=== PATIENT | female | born 1935 | race Two or more races ===

== ENCOUNTER 2017-07-19 10:49 | Emergency (ER) | payer OTHER ==
[~2017-07-19] VITALS: Ht 149.9 cm; Wt 40.8 kg
[2017-07-19 11:14] VITALS: BP 132/72
[2017-07-19] MEDS ORDERED: VOLTAREN100 G1 TP (11:19)
[2017-07-19] MEDS ORDERED: CALCIUM + D3 E1 EACH PO (11:19)
[2017-07-19] MEDS ORDERED: TRAZODONE HCL150 MG ORAL (11:19)
[2017-07-19] MEDS ORDERED: LEVOTHYROXINE75 MCG ORAL (11:19)
[2017-07-19] MEDS ORDERED: MAPAP500 M2 PO (11:19)
[2017-07-19] MEDS ORDERED: FOSAMAX70 MG ORAL (11:19)
[2017-07-19] MEDS ORDERED: ONDANSETRON ODT8 MG ORAL (11:25)
[2017-07-19] MEDS ORDERED: MELOXICAM7.5 MG PO (11:25)
[2017-07-19] MEDS ORDERED: ROBAFEN-DM SYR118 ML PO (11:25)
--- NOTE | 2017-07-19 11:46 | Diagnostic Imaging Report ---
Indications: Fall, change in mental status Technique: Spiral acquisitions obtained through the brain. Angled axial and coronal 5 x 5 mm slices were reconstructed. Total dose length product 1273.93 mGycm. CTDI vol(s) 70.38 mGy. Dose reduction achieved using automated exposure control Comparison: None. Findings: The calvarium is intact. No evidence of acute intracranial hemorrhage or edema, mass effect, or midline shift. Normal cornejo-white differentiation. There is age-related enlargement of the ventricles and extra-axial CSF spaces and periventricular deep white matter low-attenuation consistent with chronic ischemic change. There is minimal sphenoid sinus disease. 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 A few scattered parenchymal calcifications are also demonstrated. 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 There may be some parenchymal calcifications as well. Other chronic and age-related changes, as described The CT scanner at [facility] is accredited by the [employer] and the scans are performed using protocols designed to limit radiation exposure to as low as reasonably achievable to attain images of sufficient resolution adequate for diagnostic evaluation.
[2017-07-19 12:05] LABS: HEMATOCRIT 43.4 % (37.0-47.0); HEMOGLOBIN 14.2 G/DL (12.0-16.0); LYMPHOCYTES % (AUTO) 23.9 % (20.0-45.0); MEAN CORPUSCULAR VOLUME 89 FL (80-99); MONOCYTES % (AUTO) 10.9 % (1.0-10.0); NEUTROPHILS % (AUTO) 63.2 % (45.0-75.0); PLATELET COUNT 280 K/UL (150-450); RED BLOOD COUNT 4.87 M/UL (4.20-5.40); RED CELL DISTRIBUTION WIDTH 11.1 % (11.6-14.8); WHITE BLOOD COUNT 9.1 K/UL (4.8-10.8)
--- NOTE | 2017-07-19 12:08 | Diagnostic Imaging Report ---
Indication: Shortness of breath Technique: One view of the chest Comparison: none Findings: Hypoventilatory exam with bilateral basilar atelectasis. Normal heart size. Tortuous calcite aorta. Upper mediastinum is unremarkable. Calcification or metallic density projects over the lower midline. Impression: No acute process
[2017-07-19 12:11] LABS: INR 1.1 (0.9-1.1)
[2017-07-19 12:17] LABS: ANION GAP 8 mmol/L (5-15); BLOOD UREA NITROGEN 31 mg/dL (7-18); CALCIUM 10.2 MG/DL (8.5-10.1); CARBON DIOXIDE 29 MMOL/L (21-32); CHLORIDE 98 MMOL/L (98-107); CREATININE 1.7 MG/DL (0.55-1.30); POTASSIUM 4.3 MMOL/L (3.5-5.1); SODIUM 135 MMOL/L (136-145)
[2017-07-19 12:21] LABS: APPEARANCE,URINE CLEAR; BILIRUBIN, URINE NEGATIVE (NEGATIVE); COLOR,URINE PALE YELLOW; GLUCOSE, URINE (UA) NEGATIVE (NEGATIVE); KETONES,URINE NEGATIVE (NEGATIVE); LEUKOCYTE ESTERASE ,URINE NEGATIVE (NEGATIVE); NITRITE,URINE NEGATIVE (NEGATIVE); PH,URINE 5 (4.5-8.0); PROTEIN,URINE NEGATIVE (NEGATIVE); UROBILINOGEN,URINE NORMAL MG/DL (0.0-1.0)
[2017-07-19 12:22] LABS: ALANINE AMINOTRANSFERASE 29 U/L (12-78); ALBUMIN 3.6 G/DL (3.4-5.0); ALBUMIN/GLOBULIN RATIO 0.9 (1.0-2.7); ALKALINE PHOSPHATASE 42 U/L (46-116); ASPARTATE AMINO TRANSFERASE 34 U/L (15-37); BILIRUBIN,TOTAL 0.5 MG/DL (0.2-1.0); CREATINE KINASE 347 U/L (26-308)
--- NOTE | 2017-07-19 14:31 | Emergency Room Report ---
History of Present Illness General Chief Complaint: Multiple Trauma/Fall Source: Patient Present Illness HPI This patient presents from assisted living facility. There was concern that she had fallen in the bathroom this morning. The fall was not witnessed. Per report, staff found the patient on the floor in the bathroom. There is was no obvious trauma. The patient herself has no complaints. There is no other history available. Allergies: Coded Allergies: No Known Allergies (Unverified , 07/19/17) Patient History Past Medical History: see triage record, dementia, renal disease, other - Gait instability Social History: Denies: smoking, alcohol use, drug use Reviewed Nursing Documentation: PMH: Agreed; PSxH: Agreed Nursing Documentation-PMH Past Medical History: No History, Except For Review of Systems All Other Systems: negative except mentioned in HPI Physical Exam Vital Signs Date Time Temp Pulse Resp B/P (MAP) Pulse Ox O2 Delivery O2 Flow Rate FiO2 07/19/17 10:56 97.5 84 16 132/72 97 Room Air 97.5 Sp02 EP Interpretation: reviewed, normal General Appearance: no apparent distress, alert, GCS 15, non-toxic Head: normocephalic, atraumatic Eyes: bilateral eye normal inspection, bilateral eye PERRL ENT: hearing grossly normal, normal pharynx, no angioedema, normal voice Neck: full range of motion, supple/symm/no masses Respiratory: chest non-tender, lungs clear, normal breath sounds, speaking full sentences Cardiovascular #1: regular rate, rhythm, no edema Gastrointestinal: normal bowel sounds, non tender, soft, non-distended, no guarding, no rebound Rectal: deferred Musculoskeletal: back normal, gait/station normal, normal range of motion, non- tender Neurologic: alert, oriented x3, responsive, motor strength/tone normal, sensory intact, speech normal Psychiatric: judgement/insight normal, memory normal, mood/affect normal, no suicidal/homicidal ideation Skin: normal color, no rash, warm/dry, well hydrated Medical Decision Making Diagnostic Impression: Primary Impression: Fall Additional Impression: Renal insufficiency, mild ER Course This elderly female presents for evaluation after a fall in the bathroom. She is a very well-appearing without any evidence of long bone or bony fracture of any sort. My physical exam is benign. There is no evidence of head trauma, however, given the patient's age I did obtain a CT of the head. The patient's laboratory workup is at her baseline. She does have renal insufficiency but this is chronic for her. The patient's family is bedside. At this time, I did not identify an emergency medical condition or significant injury from her fall. She is returned to the assisted living facility. Laboratory Tests Test 07/19/17 11:30 07/19/17 12:10 White Blood Count 9.1 K/UL (4.8-10.8) Red Blood Count 4.87 M/UL (4.20-5.40) Hemoglobin 14.2 G/DL (12.0-16.0) Hematocrit 43.4 % (37.0-47.0) Mean Corpuscular Volume 89 FL (80-99) Mean Corpuscular Hemoglobin 29.1 PG (27.0-31.0) Mean Corpuscular Hemoglobin Concent 32.6 G/DL (32.0-36.0) Red Cell Distribution Width 11.1 % (11.6-14.8) L Platelet Count 280 K/UL (150-450) Mean Platelet Volume 6.7 FL (6.5-10.1) Neutrophils (%) (Auto) 63.2 % (45.0-75.0) Lymphocytes (%) (Auto) 23.9 % (20.0-45.0) Monocytes (%) (Auto) 10.9 % (1.0-10.0) H Eosinophils (%) (Auto) 1.0 % (0.0-3.0) Basophils (%) (Auto) 1.0 % (0.0-2.0) Prothrombin Time 12.0 SEC (9.30-11.50) H Prothrombin Time INR 1.1 (0.9-1.1) PTT 30 SEC (23-33) Sodium Level 135 MMOL/L (136-145) L Potassium Level 4.3 MMOL/L (3.5-5.1) Chloride Level 98 MMOL/L (98-107) Carbon Dioxide Level 29 MMOL/L (21-32) Anion Gap 8 mmol/L (5-15) Blood Urea Nitrogen 31 mg/dL (7-18) H Creatinine 1.7 MG/DL (0.55-1.30) H Estimate Glomerular Filtration Rate mL/min (>60) Glucose Level 134 MG/DL (74-106) H Calcium Level 10.2 MG/DL (8.5-10.1) H Total Bilirubin 0.5 MG/DL (0.2-1.0) Aspartate Amino Transferase (AST) 34 U/L (15-37) Alanine Aminotransferase (ALT) 29 U/L (12-78) Alkaline Phosphatase 42 U/L (46-116) L Total Creatine Kinase 347 U/L (26-308) H Troponin I 0.000 ng/mL (0.000-0.056) Total Protein 7.6 G/DL (6.4-8.2) Albumin 3.6 G/DL (3.4-5.0) Globulin 4.0 g/dL Albumin/Globulin Ratio 0.9 (1.0-2.7) L Urine Color Pale yellow Urine Appearance Clear Urine pH 5 (4.5-8.0) Urine Specific [place] 1.015 (1.005-1.035) Urine Protein Negative (NEGATIVE) Urine Glucose (UA) Negative (NEGATIVE) Urine Ketones Negative (NEGATIVE) Urine Occult Blood Negative (NEGATIVE) Urine Nitrite Negative (NEGATIVE) Urine Bilirubin Negative (NEGATIVE) Urine Urobilinogen Normal MG/DL (0.0-1.0) Urine Leukocyte Esterase Negative (NEGATIVE) EKG Diagnostic Results Rate: normal Rhythm: NSR ST Segments: no acute changes Rhythm Strip Diag. Results EP Interpretation: yes Rate: 80's Rhythm: NSR, no PVC's, no ectopy CT/MRI/US Diagnostic Results CT/MRI/US Diagnostic Results : Imaging Test Ordered: CT head Impression No acute findings. See official report for incidental findings. Last Vital Signs Date Time Temp Pulse Resp B/P (MAP) Pulse Ox O2 Delivery O2 Flow Rate FiO2 07/19/17 11:14 97.5 16 132/72 97 Room Air 97.5 07/19/17 10:56 84 Status: improved Disposition: HOME, SELF-CARE Condition: Improved Referrals: NON PHYSICIAN (PCP) FREEDOM STOCKTON D.O. July 19, 2017 14:31
[2017-07-19 14:40] VITALS: BP 129/82
[2017-07-19 17:02] VITALS: BP 127/77
--- NOTE | 2017-07-22 14:00 | Cardiology Report ---
APPROVED REPORT EKG Measurement Heart [id number] Normal sinus rhythm Possible Inferior infarct, age undetermined Abnormal ECG
== END 2017-07-19 16:45 | disposition home or self-care (01) ==
LOC: EDBD 10:49 → EMR 11:37
DX: Z04.3 Encounter for examination and observation following other accident (principal); N28.9 Disorder of kidney and ureter, unspecified; R41.82 Altered mental status, unspecified; Z91.81 History of falling
CPT/HCPCS: 36415; 70450; 71045; 80053; 81003; 82550; 84484; 85025; 85610; 85730; 93005; 96374; 99284

== ENCOUNTER 2019-04-15 11:45 | Emergency (ER) | payer OTHER ==
[~2019-04-15] VITALS: Ht 162.6 cm; Wt 34.0 kg
[~2019-04-15 11:45] MED LIST: ATIVAN0.5 MG ORAL; CALCIUM + D3 E1 EACH PO; FOSAMAX70 MG ORAL; LEVOTHYROXINE75 MCG ORAL; MAPAP500 M2 PO; MELOXICAM7.5 MG PO; ONDANSETRON ODT8 MG ORAL; RISPERDAL0.5 MG ORAL; ROBAFEN-DM SYR118 ML PO; TRAZODONE HCL150 MG ORAL; VOLTAREN100 G1 TP
--- NOTE | 2019-04-15 11:55 | NUR ---
ED Nurse Note: patient brought into ED from [facility] by ambulance [facility], per sons, patient is s/p fall and c/o back pain. per son, patient has been having multiple falls recently. patient is alert awake, on a hospital gown, on a site monitor. kendra number: [phone]
[2019-04-15] MEDS ORDERED: LEVOTHYROXINE75 MCG ORAL (12:05)
[2019-04-15] MEDS ORDERED: MIRTAZAPINE15 M3 ORAL (12:05)
[2019-04-15] MEDS ORDERED: ZOFRAN4 M3 ORAL (12:05)
--- NOTE | 2019-04-15 12:08 | Emergency Room Report ---
History of Present Illness General Chief Complaint: Multiple Trauma/Fall Source: Patient, Medical Record, EMS Present Illness HPI 83-year-old female presents with mechanical fall, history is limited patient has a history of many falls, dementia, is alert and oriented x1, apparently fell yesterday, unknown if patient hit head, patient is only complaining of back pain and points at the left lower back no known aggravating relieving factors severity is mild, intermittent patient is able to ambulate [facility] Allergies: Coded Allergies: No Known Allergies (Unverified , 07/19/17) Patient History Limited by: medical condition - Dementia Past Medical History: see triage record Last Menstrual Period: na Reviewed Nursing Documentation: PMH: Agreed; PSxH: Agreed Nursing Documentation-PMH Past Medical History: No History, Except For Hx Cardiac Problems: No - osteoarthritis Review of Systems All Other Systems: limited - Dementia Physical Exam Vital Signs Date Time Temp Pulse Resp B/P (MAP) Pulse Ox O2 Delivery O2 Flow Rate FiO2 04/15/19 11:47 98.2 91 19 120/70 (87) 97 Room Air Sp02 EP Interpretation: reviewed, normal General Appearance: well appearing, no apparent distress, alert Head: normocephalic, atraumatic Eyes: bilateral eye PERRL, bilateral eye EOMI ENT: uvula midline, moist mucus membranes Neck: supple, thyroid normal, no bony tend, supple/symm/no masses Respiratory: lungs clear, no respiratory distress, no retraction, no accessory muscle use Cardiovascular #1: normal peripheral pulses, regular rate, rhythm, no edema, no gallop, no murmur Gastrointestinal: non tender, soft, no guarding, no rebound Musculoskeletal: other - Left lower back hand to palpation no midline tenderness no step-offs Neurologic: alert, responsive - Responsive but confused Psychiatric: mood/affect normal Skin: no rash, warm/dry Medical Decision Making Diagnostic Impression: Primary Impression: Fall Qualified Codes: W19.XXXA - Unspecified fall, initial encounter Additional Impressions: Low back pain Qualified Codes: M54.5 - Low back pain; G89.29 - Other chronic pain Lung nodule, multiple UTI (urinary tract infection) Qualified Codes: N30.00 - Acute cystitis without hematuria ER Course 83-year-old female history of dementia history of multiple falls in the past presents with mechanical fall left lower back pain not midline differential diagnosis includes contusion, fracture, dislocation Labs show UTI, patient with incidental lung nodule findings, patient's son was made aware CT imaging negative will discharge patient back to SNF Anamaria BRISENO spoke with john Bhakta at 3:07pm, son wants patient discharged to specific SNF, niece and son state they want ER to arrange placement into new SNF location, sons were counseled that she can be discharged back to assisted living, and that she can be transferred to a SNF of their choosing as an outpatient. Disposition home with return precautions follow-up with PCP Laboratory Tests Test 04/15/19 12:00 04/15/19 12:10 White Blood Count 9.7 K/UL (4.8-10.8) Red Blood Count 4.81 M/UL (4.20-5.40) Hemoglobin 14.9 G/DL (12.0-16.0) Hematocrit 43.4 % (37.0-47.0) Mean Corpuscular Volume 90 FL (80-99) Mean Corpuscular Hemoglobin 31.1 PG (27.0-31.0) H Mean Corpuscular Hemoglobin Concent 34.5 G/DL (32.0-36.0) Red Cell Distribution Width 11.8 % (11.6-14.8) Platelet Count 246 K/UL (150-450) Mean Platelet Volume 7.0 FL (6.5-10.1) Neutrophils (%) (Auto) 64.6 % (45.0-75.0) Lymphocytes (%) (Auto) 25.3 % (20.0-45.0) Monocytes (%) (Auto) 7.9 % (1.0-10.0) Eosinophils (%) (Auto) 1.6 % (0.0-3.0) Basophils (%) (Auto) 0.6 % (0.0-2.0) Prothrombin Time 11.4 SEC (9.30-11.50) Prothrombin Time INR 1.1 (0.9-1.1) Activated Partial Thromboplast Time 27 SEC (23-33) Sodium Level 140 MMOL/L (136-145) Potassium Level 4.3 MMOL/L (3.5-5.1) Chloride Level 107 MMOL/L (98-107) Carbon Dioxide Level 24 MMOL/L (21-32) Anion Gap 9 mmol/L (5-15) Blood Urea Nitrogen 31 mg/dL (7-18) H Creatinine 1.4 MG/DL (0.55-1.30) H Estimate Glomerular Filtration Rate 35.9 mL/min (>60) Glucose Level 87 MG/DL (74-106) Calcium Level 9.2 MG/DL (8.5-10.1) Total Bilirubin 0.5 MG/DL (0.2-1.0) Aspartate Amino Transferase (AST) 31 U/L (15-37) Alanine Aminotransferase (ALT) 23 U/L (12-78) Alkaline Phosphatase 36 U/L (46-116) L Total Protein 7.5 G/DL (6.4-8.2) Albumin 3.3 G/DL (3.4-5.0) L Globulin 4.2 g/dL Albumin/Globulin Ratio 0.8 (1.0-2.7) L Lipase 142 U/L (73-393) Urine Color Jossy Urine Appearance Clear Urine pH 5 (4.5-8.0) Urine Specific [place] 1.020 (1.005-1.035) Urine Protein 1+ (NEGATIVE) H Urine Glucose (UA) Negative (NEGATIVE) Urine Ketones Negative (NEGATIVE) Urine Blood 2+ (NEGATIVE) H Urine Nitrite Positive (NEGATIVE) H Urine Bilirubin Negative (NEGATIVE) Urine Ictotest Negative (NEGATIVE) Urine Urobilinogen Normal MG/DL (0.0-1.0) Urine Leukocyte Esterase 1+ (NEGATIVE) H Urine RBC 0-2 /HPF (0 - 2) Urine WBC 5-10 /HPF (0 - 2) H Urine Squamous Epithelial Cells Occasional /LPF Urine Bacteria Many /HPF (NONE) H CT/MRI/US Diagnostic Results CT/MRI/US Diagnostic Results : Impression Procedure: CT Abdomen Pelvis WO Contrast Indication: Pain, trauma, fall Technique: Spiral acquisitions obtained through the abdomen and pelvis. No oral contrast utilized, per emergency room physician request No IV contrast utilized , per referring physician request.. Multiplanar reconstructions were generated. Total dose length product 143 mGycm. CTDIvol(s) 3 mGy. Dose reduction achieved using automated exposure control Comparison: None Findings: The bones demonstrate no evidence of fracture. There is stranding of the subcutaneous fat in the left hip region, could represent an area of soft tissue contusion. No retroperitoneal, intra-abdominal, or intrapelvic hematoma demonstrated. There is thoracolumbar scoliotic deformity and degenerative lumbosacral spondylosis. High attenuation material is seen in the posterior sacral epidural space, likely representing residual fat-soluble contrast from prior myelographic injection. Scattered foci of similar-appearing material are also seen within the spinal canal Lack of IV contrast limits assessment of the solid organs. The liver is grossly unremarkable. The gallbladder is nondistended. No biliary ductal dilatation. The pancreas, spleen, adrenals, kidneys are unremarkable. No renal or ureteral calculi, hydronephrosis, or hydroureter demonstrated. No pelvic mass or adenopathy. The uterus and adnexal structures are unremarkable. The bladder contains a Arthur catheter. However, the bladder is mildly distended despite the presence of the Arthur catheter. The rectum is mildly to moderately distended with stool, measures up to 7 cm in diameter. There are a few scattered colonic diverticula. No evidence of acute diverticulitis demonstrated. The appendix is normal. No small bowel distention. No free or loculated intraperitoneal gas or fluid is evident. The distal esophagus and stomach are unremarkable. 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 There is some increased attenuation of the fat of the mesenteric root to the left of midline, and prominent lymph nodes are seen in this area. This does not appear to be associated with the pancreatic tail. There is an accessory splenule noted. The included lung bases demonstrate posterior dependent atelectatic changes. Impression: No acute bony, soft tissue, or solid organ trauma demonstrated. Note , however, that assessment for the latter is somewhat limited in the absence of IV contrast Increased attenuation of the fat of the mesenteric root to the left of midline. This could represent an area of inflammation, nonspecific as regards etiology. Dominant lymph nodes in the same area may reflect associated reactive lymphadenopathy. Mild rectal distention with stool, rectal fecal impaction not excludable Arthur catheter in place. Distention of the bladder despite the presence of the Arthur catheter Lumbar scoliotic deformity and degenerative lumbosacral spondylosis High attenuation material within the sacral epidural space and within the thoracic and lumbar spinal canal, likely residual contrast from prior myelographic injection with fat soluble contrast Incidental findings as noted, including posterior dependent pulmonary atelectatic changes, accessory splenule, duodenal diverticulum The CT scanner at [facility] is accredited by the [employer] and the scans are performed using protocols designed to limit radiation exposure to as low as reasonably achievable to attain images of sufficient resolution adequate for diagnostic evaluation. Dictated By: Tanmay Clancy MD Electronically Signed By: Tanmay Clancy MD Signed Date/Time 04/15/19 1446 CC: Jose Alejandro Jacobo MD Procedure: CT Head no Contrast Indications: Mechanical fall, head trauma, dementia, Technique: Spiral acquisitions obtained through the brain. Angled axial and coronal 5 x 5 mm slices were reconstructed. Total dose length product 1018 mGycm. CTDI vol(s) 53 mGy. Dose reduction achieved using automated exposure control Comparison: 07/19/2017 Findings: Again demonstrated is age-related enlargement of the ventricles and extra axial CSF spaces. There is periventricular deep white matter low-attenuation, consistent with chronic microvascular ischemic change. Unusual extensive very dense mostly extra-axial punctate densities are again noted, particularly at the skull base. In the foramen magnum.. No acute intracranial hemorrhage or edema. No mass effect nor midline shift. Visualized orbits are unremarkable. There is sphenoid sinus disease. The mastoids are clear. The calvarium is intact. There is no significant interim change Impression: Chronic and age-related changes Negative for acute intracranial bleed or mass effect Unusual extensive mostly extra-axial densities, as described. While possibly representing meningeal calcifications, this could also represent fat soluble contrast, deposits from prior myelography The CT scanner at [facility] is accredited by the [employer] and the scans are performed using protocols designed to limit radiation exposure to as low as reasonably achievable to attain images of sufficient resolution adequate for diagnostic evaluation. Dictated By: Tamnay Clancy MD Electronically Signed By: Tanmay Clancy MD Signed Date/Time 04/15/19 1429 CC: Jose Alejandro Jacobo MD Last Vital Signs Date Time Temp Pulse Resp B/P (MAP) Pulse Ox O2 Delivery O2 Flow Rate FiO2 04/15/19 11:47 98.2 91 19 120/70 (87) 97 Room Air Disposition: XFER SNF Condition: Stable Scripts Acetaminophen* (ACETAMINOPHEN EXTRA STRENGTH*) 500 Mg Tablet 500 MG ORAL Q6H PRN for For Pain, #20 TAB Prov: Jose Alejandro Jacobo MD 04/15/19 Lidocaine Patch* (Lidoderm Patch*) 1 Each Adh..patch 1 PATCH TOPIC DAILY, #7 PATCH 0 Refills Patch(es) may remain in place for up to 12 hours in any 24-hour period. Prov: Jose Alejandro Jacobo MD 04/15/19 Cephalexin* (KEFLEX*) 500 Mg Capsule 500 MG ORAL EVERY 6 HOURS, #28 CAP Prov: Jose Alejandro Jcaobo MD 04/15/19 Referrals: [facility] Patient Instructions: Back Pain, Adult, [id number], Urinary Tract Infection, [id number] Additional Instructions: The patient was provided with discharge instructions, notified to follow-up with a primary care doctor and or specialist in the next 24-48 hours, and to return to the ED if they have worsening of their symptoms. Please note that this report is being documented using [employer] technology. This can lead to erroneous entry secondary to incorrect interpretation by the dictating instrument. Procedure: XRAY Chest 1v Indication: Chest Technique: One view of the chest Comparison: 01/31/2019 Findings: There are 2 nodules in the right lung, each measuring approximately 1 cm diameter, not evident previously. Along the pleural spaces are otherwise clear. The heart size is normal. The aorta is calcified Impression: 2 right lung nodules, not evident on prior 01/31/[address] for further evaluation PLEASE OBTAIN OUTPATIENT CT CHEST NON EMERGENT TO EVALUATE NODULES Jose Alejandro Jacobo MD Apr 15, 2019 12:08
[2019-04-15 12:25] VITALS: BP 127/61
[2019-04-15 12:30] LABS: APPEARANCE,URINE CLEAR; BILIRUBIN, URINE NEGATIVE (NEGATIVE); COLOR,URINE AMBER; GLUCOSE, URINE (UA) NEGATIVE (NEGATIVE); KETONES,URINE NEGATIVE (NEGATIVE); LEUKOCYTE ESTERASE ,URINE 1+ (NEGATIVE); NITRITE,URINE POSITIVE (NEGATIVE); PH,URINE 5 (4.5-8.0); PROTEIN,URINE 1+ (NEGATIVE); UROBILINOGEN,URINE NORMAL MG/DL (0.0-1.0)
[2019-04-15 12:38] LABS: ANION GAP 9 mmol/L (5-15); BLOOD UREA NITROGEN 31 mg/dL (7-18); CALCIUM 9.2 MG/DL (8.5-10.1); CARBON DIOXIDE 24 MMOL/L (21-32); CHLORIDE 107 MMOL/L (98-107); CREATININE 1.4 MG/DL (0.55-1.30); POTASSIUM 4.3 MMOL/L (3.5-5.1); SODIUM 140 MMOL/L (136-145)
[2019-04-15 12:39] LABS: INR 1.1 (0.9-1.1)
[2019-04-15 12:41] LABS: ALANINE AMINOTRANSFERASE 23 U/L (12-78); ALBUMIN 3.3 G/DL (3.4-5.0); ALBUMIN/GLOBULIN RATIO 0.8 (1.0-2.7); ALKALINE PHOSPHATASE 36 U/L (46-116); ASPARTATE AMINO TRANSFERASE 31 U/L (15-37); BILIRUBIN,TOTAL 0.5 MG/DL (0.2-1.0)
[2019-04-15 12:55] LABS: BASOPHILS % (AUTO) 0.6 % (0.0-2.0); EOSINOPHILS % (AUTO) 1.6 % (0.0-3.0); HEMATOCRIT 43.4 % (37.0-47.0); HEMOGLOBIN 14.9 G/DL (12.0-16.0); LYMPHOCYTES % (AUTO) 25.3 % (20.0-45.0); MEAN CORPUSCULAR VOLUME 90 FL (80-99); MONOCYTES % (AUTO) 7.9 % (1.0-10.0); NEUTROPHILS % (AUTO) 64.6 % (45.0-75.0); PLATELET COUNT 246 K/UL (150-450); RED BLOOD COUNT 4.81 M/UL (4.20-5.40); RED CELL DISTRIBUTION WIDTH 11.8 % (11.6-14.8); WHITE BLOOD COUNT 9.7 K/UL (4.8-10.8)
--- NOTE | 2019-04-15 13:00 | Diagnostic Imaging Report ---
Indication: Chest Technique: One view of the chest Comparison: 01/31/2019 Findings: There are 2 nodules in the right lung, each measuring approximately 1 cm diameter, not evident previously. Along the pleural spaces are otherwise clear. The heart size is normal. The aorta is calcified Impression: 2 right lung nodules, not evident on prior 01/31/[address] for further evaluation No acute process otherwise
[2019-04-15] MEDS ORDERED: cefTRIAXone 1 GM in NS 55 ML IVPB ONE (13:30)
[2019-04-15] MEDS ORDERED: CEPHALEXIN500 MG ORAL (13:40)
[2019-04-15] MEDS ORDERED: LIDODERM700 M1 TOPIC (13:44)
[2019-04-15] MEDS ORDERED: ACETAMINOPHEN500 M3 ORAL (13:44)
[2019-04-15] MEDS ORDERED: Acetaminophen 500mg (ES) tab ORAL ONE (13:45)
[2019-04-15] MEDS ORDERED: Ketorolac 30mg Inj IV ONE (13:45)
--- NOTE | 2019-04-15 14:30 | Diagnostic Imaging Report ---
Indications: Mechanical fall, head trauma, dementia, Technique: Spiral acquisitions obtained through the brain. Angled axial and coronal 5 x 5 mm slices were reconstructed. Total dose length product 1018 mGycm. CTDI vol(s) 53 mGy. Dose reduction achieved using automated exposure control Comparison: 07/19/2017 Findings: Again demonstrated is age-related enlargement of the ventricles and extra axial CSF spaces. There is periventricular deep white matter low-attenuation, consistent with chronic microvascular ischemic change. Unusual extensive very dense mostly extra-axial punctate densities are again noted, particularly at the skull base. In the foramen magnum.. No acute intracranial hemorrhage or edema. No mass effect nor midline shift. Visualized orbits are unremarkable. There is sphenoid sinus disease. The mastoids are clear. The calvarium is intact. There is no significant interim change Impression: Chronic and age-related changes Negative for acute intracranial bleed or mass effect Unusual extensive mostly extra-axial densities, as described. While possibly representing meningeal calcifications, this could also represent fat soluble contrast, deposits from prior myelography The CT scanner at [facility] is accredited by the [employer] and the scans are performed using protocols designed to limit radiation exposure to as low as reasonably achievable to attain images of sufficient resolution adequate for diagnostic evaluation.
--- NOTE | 2019-04-15 14:50 | Diagnostic Imaging Report ---
Indication: Pain, trauma, fall Technique: Spiral acquisitions obtained through the abdomen and pelvis. No oral contrast utilized, per emergency room physician request No IV contrast utilized, per referring physician request.. Multiplanar reconstructions were generated. Total dose length product 143 mGycm. CTDIvol(s) 3 mGy. Dose reduction achieved using automated exposure control Comparison: None Findings: The bones demonstrate no evidence of fracture. There is stranding of the subcutaneous fat in the left hip region, could represent an area of soft tissue contusion. No retroperitoneal, intra-abdominal, or intrapelvic hematoma demonstrated. There is thoracolumbar scoliotic deformity and degenerative lumbosacral spondylosis. High attenuation material is seen in the posterior sacral epidural space, likely representing residual fat-soluble contrast from prior myelographic injection. Scattered foci of similar-appearing material are also seen within the spinal canal Lack of IV contrast limits assessment of the solid organs. The liver is grossly unremarkable. The gallbladder is nondistended. No biliary ductal dilatation. The pancreas, spleen, adrenals, kidneys are unremarkable. No renal or ureteral calculi, hydronephrosis, or hydroureter demonstrated. No pelvic mass or adenopathy. The uterus and adnexal structures are unremarkable. The bladder contains a Arthur catheter. However, the bladder is mildly distended despite the presence of the Arthur catheter. The rectum is mildly to moderately distended with stool, measures up to 7 cm in diameter. There are a few scattered colonic diverticula. No evidence of acute diverticulitis demonstrated. The appendix is normal. No small bowel distention. No free or loculated intraperitoneal gas or fluid is evident. The distal esophagus and stomach are unremarkable. 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 There is some increased attenuation of the fat of the mesenteric root to the left of midline, and prominent lymph nodes are seen in this area. This does not appear to be associated with the pancreatic tail. There is an accessory splenule noted. The included lung bases demonstrate posterior dependent atelectatic changes. Impression: No acute bony, soft tissue, or solid organ trauma demonstrated. Note, however, that assessment for the latter is somewhat limited in the absence of IV contrast Increased attenuation of the fat of the mesenteric root to the left of midline. This could represent an area of inflammation, nonspecific as regards etiology. Dominant lymph nodes in the same area may reflect associated reactive lymphadenopathy. Mild rectal distention with stool, rectal fecal impaction not excludable Arthur catheter in place. Distention of the bladder despite the presence of the Arthur catheter Lumbar scoliotic deformity and degenerative lumbosacral spondylosis High attenuation material within the sacral epidural space and within the thoracic and lumbar spinal canal, likely residual contrast from prior myelographic injection with fat soluble contrast Incidental findings as noted, including posterior dependent pulmonary atelectatic changes, accessory splenule, duodenal diverticulum The CT scanner at [facility] is accredited by the [employer] and the scans are performed using protocols designed to limit radiation exposure to as low as reasonably achievable to attain images of sufficient resolution adequate for diagnostic evaluation.
--- NOTE | 2019-04-15 15:11 | NUR ---
ED Nurse Note: spoke with the son and the niece Yony Gaston) over the phone, informed them that the patient is cleared for discharge back to assisted living place or home. The niece stated that he will check for placement and call us back.
--- NOTE | 2019-04-15 15:31 | NUR ---
called donte jackson for albert [phone]. ticket #[id number] eta unknown
--- NOTE | 2019-04-15 16:27 | NUR ---
ER DISCHARGE NOTE: Patient is cleared to be discharged per MICHELLE AG, pt is aox4, on room air, with stable vital signs. pt was given dc and prescription instructions, faxed to Suzanne BRISENO to [facility] and also given to [facility] dispatch lead. pt id band and iv site removed without complications. pt took all belongings.
[2019-04-15 16:28] VITALS: BP 121/60
--- NOTE | 2019-04-15 16:28 | NUR ---
ED Nurse Note: patient is being transferred via [facility] ambulance Unit # [id number] to [facility] with all of her belongings, in stable condition. report given to Suzanne Brooks that patient is going back to facility. endorsed all plan of care to Suzanne BROOKS.
[2019-04-15 16:41] VITALS: BP 121/60
== END 2019-04-15 17:00 ==
LOC: EDBD 11:45 → EMR 13:51
DX: G89.29 Other chronic pain (principal); M54.5 Low back pain; N30.00 Acute cystitis without hematuria; R91.8 Other nonspecific abnormal finding of lung field; F03.90 Unspecified dementia, unspecified severity, without behavioral disturbance, psychotic disturbance, mood disturbance, and anxiety; M19.90 Unspecified osteoarthritis, unspecified site; W01.0XXA Fall on same level from slipping, tripping and stumbling without subsequent striking against object, initial encounter; Y93.9 Activity, unspecified; Y92.9 Unspecified place or not applicable
CPT/HCPCS: 36415; 70450; 71045; 74176; 80053; 81003; 83690; 85025; 85610; 85730; 87086; 87181; 96361; 96365; 96375; J0696; J1885; J7030; Z7502; 99284